=== PATIENT | male | born 1975 | race African-American/Black ===

== ENCOUNTER 2017-10-29 00:51 | Emergency (ER) | payer MEDICARE ==
[~2017-10-29] VITALS: Ht 180.3 cm; Wt 88.6 kg
[2017-10-29 01:08] VITALS: Ht 180.3 cm; Wt 88.6 kg
[2017-10-29] MEDS ORDERED: BENZTROPINE MESY1 MG (01:09)
[2017-10-29] MEDS ORDERED: GLUCOPHAGE500 MG (01:09)
[2017-10-29] MEDS ORDERED: HALDOL5 MG (01:09)
[2017-10-29] MEDS ORDERED: HALDOL5 MG PO (03:54)
[2017-10-29] MEDS ORDERED: BENZTROPINE MESY1 MG PO (03:54)
[2017-10-29 04:51] VITALS: BP 130/87
== END 2017-10-29 04:52 | disposition home or self-care (01) ==
LOC: D.ER 00:51
DX: F20.9 Schizophrenia, unspecified (principal); E11.9 Type 2 diabetes mellitus without complications; F17.200 Nicotine dependence, unspecified, uncomplicated